=== PATIENT | female | born 1960 | race Caucasian/White ===

== ENCOUNTER 2020-07-03 10:41 | Day surgery (SDC) | payer BC ==
[~2020-07-03 10:41] MED LIST: Lactated Ringers 1,000 ML IV SCH; Midazolam 1 MG/ML 2 ML SDV ONE; Propofol 200 MG/20 ML SDV ONE; Sodium Chloride 0.9% 10 ML Syringe FLUSH PRN
[2020-07-03] MEDS ORDERED: Propofol 200 MG/20 ML SDV ONE (15:04)
[2020-07-03] MEDS ORDERED: Midazolam 1 MG/ML 2 ML SDV ONE (15:04)
--- NOTE | 2020-07-03 15:08 | PCM.PN ---
- General Info Date of Service: 07/03/20 - Review of Systems Systems Review Comment:: 60-year-old female with family history of colon polyps here for colonoscopy. She is medically stable to proceed today. She has not noticed any recent changes in bowel pattern. Her recent history and physical is reviewed and no significant changes are noted. I have discussed the proposed colonoscopy with the patient. Risks such as but not limited to bleeding and GI injury reviewed. She agrees to proceed. - Patient Data Vitals - Most Recent: Last Vital Signs Temp 97.8 F 07/03/20 14:30 Pulse 88 07/03/20 14:30 Resp 18 07/03/20 14:30 BP 133/75 07/03/20 14:30 Pulse Ox 99 07/03/20 14:30 Weight - Most Recent: 61.689 kg Med Orders - Current: Current Medications Lactated Ringer's (Ringers, Lactated) 1,000 mls @ 125 mls/hr IV ASDIRECTED KAREN Last Admin: 07/03/20 14:56 Dose: 125 mls/hr Documented by: Sodium Chloride (Sodium Chloride 0.9% 10 Ml Syringe) 10 ml FLUSH ASDIRECTED PRN PRN Reason: Keep Vein Open Discontinued Medications Midazolam HCl (Midazolam 1 Mg/Ml 2 Ml Sdv) Confirm Administered Dose 2 mg .ROUTE .STK-MED ONE Stop: 07/03/20 08:27 Propofol (Propofol 200 Mg/20 Ml Sdv) Confirm Administered Dose 200 mg .ROUTE .STK-MED ONE Stop: 07/03/20 08:27 Sepsis Event Note - Focused Exam Vital Signs: Vital Signs Temp Pulse Resp BP Pulse Ox 07/03/20 14:30 97.8 F 88 18 133/75 99 - Problem List Review Problem List Initiated/Reviewed/Updated: Yes - Assessment Assessment:: Family history of colon polyps - Plan Plan:: Colonoscopy
--- NOTE | 2020-07-03 15:39 | PCM.OPNOTE ---
- General Post-Op/Procedure Note Date of Surgery/Procedure: 07/03/20 Operative Procedure(s): Colonoscopy with Polypectomy Findings: Small rectal polyp Colon otherwise normal Pre Op Diagnosis: Family History of colon polyps Post-Op Diagnosis: Colon Polyp Anesthesia Technique: MAC Primary Surgeon: Jorje Pedro Pathology: Colon Polyp EBL in mLs: 0 Complications: None Condition: Good
[2020-07-03 16:42] VITALS: BP 128/76; PULSE 83
--- NOTE | 2020-07-03 22:58 | OR ---
Date of Procedure: 07/03/2020 PREOPERATIVE DIAGNOSIS: Family history of colon polyps. POSTOPERATIVE DIAGNOSIS: Colon polyp. OPERATION PERFORMED: Colonoscopy with polypectomy. INDICATIONS FOR SURGERY: This 60-year-old female comes today for a colonoscopy. She has a known family history of colon polyps. FINDINGS: A single polyp was noted on today's exam. This is a 5 mm sessile polyp in the rectum, 12 cm from the anal verge. The remainder of the colon and rectum appeared normal. DESCRIPTION OF PROCEDURE: The patient was taken to the operating room. She was given intravenous sedation and with her in the left lateral decubitus position, digital rectal exam was performed showing no rectal masses. The Olympus colonoscope was inserted into the rectum and retroflexed examination of the rectal canal was performed. The above-described polyp is identified in the rectum. Polyp was removed with a cautery snare and retrieved into a polyp trap. The scope was then carefully advanced under direct visualization through the entire length of the colon until the cecum was reached. The patient did have some looping of the colon and hand pressure was used to assist in reaching the cecum. Once the cecum had been cannulated, it was carefully examined. Its identity is confirmed by noting the normal internal cecal anatomy including the appendiceal orifice and the ileocecal valve. The light was also noted to transilluminate the abdominal wall in the right lower quadrant. After examining the cecum, the scope was slowly withdrawn sequentially re-examining the colonic segments until the entire colon and rectum had been fully examined. The scope was removed and the patient was taken from the operating room in satisfactory condition. ESTIMATED BLOOD LOSS: 0 COMPLICATIONS: None. PROGNOSIS: Good. JAIMEE Pedro MD /[id number]
== END 2020-07-03 16:35 | disposition home or self-care (01) ==
LOC: LL.SDS 10:41
PROVIDERS: ATTEND Surgery
DX: Z12.11 Encounter for screening for malignant neoplasm of colon (principal); K62.1 Rectal polyp; Z80.0 Family history of malignant neoplasm of digestive organs; Z01.812 Encounter for preprocedural laboratory examination; Z20.822 Contact with and (suspected) exposure to COVID-19; Z98.890 Other specified postprocedural states
CPT/HCPCS: 00812; G0145; J2250; J2704; J7120; U0002

== ENCOUNTER 2024-12-08 13:32 | Emergency (ER) | payer MEDICARE ==
[2024-12-08 14:36] VITALS: BP 158/87; PULSE 79
== END 2024-12-08 14:47 | disposition home or self-care (01) ==
LOC: LL.ED 13:32
DX: S61.216A Laceration without foreign body of right little finger without damage to nail, initial encounter (principal); S61.214A Laceration without foreign body of right ring finger without damage to nail, initial encounter; W26.8XXA Contact with other sharp object(s), not elsewhere classified, initial encounter; Y93.89 Activity, other specified
CPT/HCPCS: 12002; 99282-25; 99283; J2003